=== PATIENT | female | born 1940 | race Caucasian/White ===

== ENCOUNTER 2024-11-28 08:45 | Outpatient (CLI) | payer MEDICARE, SELFPAY ==
--- NOTE | ~2024-11-28 | XR_ITS ---
EXAM: XR knee RT min 4V DATE: 11/28/2024 09:26 HISTORY: M17.0 - Bilateral primary osteoarthritis of knee . COMPARISON: None available. FINDINGS: Decreased mineralization. No fracture or dislocation. No lytic or blastic lesion. Severe m edial joint space narrowing. Tricompartmental osteophytosis, severe in the medial and patellofemoral compartments. Chondrocalcinosis. No erosion or periosteal change. Soft tissues within normal limits. IMPRESSION: Severe right knee arthritis with chondrocalcinosis. Reviewed, dictated and finalized at location K. RATOR ASSEMBLER
--- OUTSIDE RECORDS SUMMARY | 2024-11-28 08:52 | XMS_ITS | Patient Health Record ---
Author Organization [facility], Address [address] [address] Care Team Providers Care Cake Washer Name Role Phone Charlotte Lorenz Primary Care Provider Ethan Zhou Unavailable [phone] ALLERGIES No Known Allergies REASON FOR REFERRAL No Information MEDICATIONS Medication SIG (Take, Route, Fr equency, Duration) Notes Start Date End Date Status amLODIPine Besylate Active Valsartan Active Atorvastatin Calcium Active Metoprolol Succinate Active MV-One Active PreserVision AREDS A ctive Vitamin D Active CoQ-10 Active B12 Active VITAL SIGNS Height 61 in 08/07/2024 Weight 200 lbs 08/07/2024 BMI 37.79 kg/m2 08/07/2024 Encounters Encounter Location Date Provider Diagnosis . 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 She had a flare-up of the trigger finger last week which has calmed down significantly with the use of ibuprofen and ice. I encouraged her to continue to use these nonoperative measures if she does have another flare-up. If she has issues, she should call our office immediately and we will fit her in. Otherwise, if the triggering increases to a point where it is prohibiting her daily activities, we would consider an injection in the future. She will let us know how we can help him forward. PLAN OF TREATMENT No Information Insurance Providers Payer Name Payer Address Payer Phone Subscriber Number Group Number Insured Name Patient Relationship to Insured Coverage Start Date Coverage End Date AETNA MEDICARE PPO [address] ZOE Kramer [phone] [id number] Sandra Cardoza Self - patient is the insured MEDICAL (GENERAL) HISTORY Medical History History ICD Code arthritis heart murmur HTN obesity Surgical History Surgery Date(Month/Year) appendectomy uterine myomectomy gall bladder lumbar tubbs carpal tunnel ventral hernia repair
--- OUTSIDE RECORDS SUMMARY | 2024-11-28 08:52 | XMS_ITS ---
Author Organization [facility] , Address [address] [place] [address] Care Team Providers Care Line Haul Owner Operator Name Role Phone Charlotte Lorenz Primary Care Provider Ethan Zhou Unavailable [phone] ALLERGIES No Known Allergies REASON FOR VISIT Right hand ring finger triggering MEDICATIONS Medication SIG (Take, Route, Fr equency, Duration) Notes Start Date End Date Status Atorvastatin Calcium Active MV-One Active PreserVision AREDS A ctive Vitamin D Active CoQ-10 Active amLODIPine Besylate Active Valsartan Active Metoprolol Succinate Active B12 Active VITAL SIGNS BMI 37.79 kg/m2 08/07/2024 Height 61 in 08/07/2024 Weight 200 lbs 08/07/2024 Encounters Encounter Location Date Provider Diagnosis . [facility] [place] [address] [place] [address] 08/07/2024 Ethan Laureano Trigger ring finger of [...] can help him forward. PLAN OF TREATMENT Next Appt Details Follow Up: prn, Reason:
--- OUTSIDE RECORDS SUMMARY | 2024-11-28 08:52 | XMS_ITS ---
Author Organization [facility], [facility] Address [address] [place] [address] [address] [place] [address] Care Team Providers Care Kiln Maintenance Name Role Phone Gerda NIELSON, Charlotte Primary Care Provider Serafin Li [phone] Encounters Encounter Location Date Provider Diagnosis [facility], [address] [place] [address] 10/30/2023 Serafin Shepherd Plan Of Treatment No Information Progress Notes * ROCKWELL Sandra JDOB:1940 (84 yo F)Acc No.[id number]:10/30/2023 Patient: Sandra GAN :1940 A ge:83 Y S ex:Female Address:[address] [place] [address], [address] Subjective: * Chief Complaints: * * Medical History: * Surgical History: * Hospitalization/Major Diagno stic Procedure: * Medications: Objective: * Vitals: * Physical Examination: Assessment: Plan: * Treatment: * Procedure Codes: * Preventive Medicine: Screenings: C olonoscopy Was last colonoscopy performed three or more years ago? Y es * true * Date: Generated for Saleem hull/Jennifer/Liamsmitting on: 0 11/28/2024 08:52 AM IC DESIGN MANAGER
--- OUTSIDE RECORDS SUMMARY | 2024-11-28 08:52 | XMS_ITS ---
Author Organization [facility] Address [address] [facility] [address], [place] [address] Care Team Providers Care Transformer Repairer Name Role Phone Haile Sawyer MD [phone] Encounters Encounter Location Date Provider Diagnosis [facility] [address] [facility] [address], [place] [address] 09/24/2024 Haile Sawyer MD PLAN OF TREATMENT No Information Procedure Notes * Category Sub-Category Detail Notes Trigger Finger Injection Procedure Under s terile conditions, patient was injected with a local anesthetic and 20 mg Depo Medrol to the ____ flexor tendon sheath. Patient tolerated the procedure well Progress Notes * Examination Category Sub-Category Detail Notes General Examination EXTREMITIES: First dorsal interosseous and thenar abductors ____
--- OUTSIDE RECORDS SUMMARY | 2024-11-28 08:52 | XMS_ITS ---
Author Organization [employer], [facility] Address [address] [place] [address] [address] [place] [address] Care Team Providers Care Business Planning Analyst Name Role Phone Gerda NIELSON, Charlotte Primary Care Provider Serafin Li [facility] [phone] Encounters Encounter Location Date Provider Diagnosis [address] [place] [address] 11/03/2023 Serafin Shepherd Plan Of Treatment No Information Progress Notes * Sandra ROCKWELL JDOB:1940 (83 yo F)Acc No.[id number]:11/03/2023 Patient: Kb taran Sandra Quiles :1940 A ge:83 Y S ex:Female Address:[address] [place] [address], [address] * true * Date: Generated for Wileyi della/Jennifer/eTransmitting on: 0 11/28/2024 08:51 AM PHARMACIST'S AIDE
--- OUTSIDE RECORDS SUMMARY | 2024-11-28 08:52 | XMS_ITS | Patient Health Record ---
Author Organization [facility] Address [address] [place] [address] REJI Burch [address] Care Team Providers Care Specialty Person Name Role Phone GATITO FORREST MD Primary Care Provider Ray faith Evan Soto Unavailable [phone] GLORY BADILLO PT Unavailable Unavailable ALLERGIES No Known Allergies REASON FOR REFERRAL No Information MEDICATIONS Medication SIG (Take, Route, Frequency, Duration) Notes Start Date End Date Status Cyclobenzaprine HCl 10 MG 1 tablet at be dtime as needed Orally Once a day for 30 day(s) 06/16/2024 Active Vitamin B12 100 MCG as directed Orally Active Goode 3 1000 MG 1 capsule Orally Thr ee times a day for 30 day(s) Active Vitamin D-3 25 MCG (1000 UT) 1 capsule O rally Once a day for 30 day(s) Active Glucosamine Chondro Complex Active amLODIPine Besylate 10 MG TAKE 1 TABLET BY MOUTH DAILY Oral for 90 Active Atorvastatin Calcium 10 MG TAKE 1 TABLET BY MOUTH DAILY Oral for 10 Active Metoprolol Succinate ER 25 MG TAKE 1 TAB LET BY MOUTH DAILY Oral for 90 Active Valsartan-hydroCHLOROthiazid e 320-25 MG TAKE 1 TABLET BY MOUTH EVERY DAY Oral for 90 Active PROBLEMS Problem Type ICD Code Onset Dates Problem Status W/U Status Risk SNOMED Code Notes Problem Bilateral primary osteoarthritis of knee (M17.0) Active confirmed Osteoarthritis of knee (422590357) Problem Spondylolisthesis, lumbar region (M43.16) Active confirmed Acquired spondylolisthesis (949085356) Problem Sacroiliitis, not elsewhere classified (M46.1) Active confirmed Solitary sacroiliitis (651896169) Problem Spondylosis without myelopathy or radiculopathy, lumbar region (M47.816) Active confirmed Lumbosacral spondylosis without myelopathy (60145653) Problem Spondylosis without myelopathy or radiculopathy, lumbosacral region (M47.817) Active confirmed Lumbosacral spondylosis without myelopathy (disorder) (48683504) Problem Other intervertebral disc degeneration, lumbar region (M51.36) Active confirmed Degeneration of lumbar intervertebral disc (02553298) Problem Radiculopathy, lumbar region (M54.16) Active confirmed Lumbar radiculopathy (712877631) Problem Postlaminectomy syndrome, not elsewhere classified (M96.1) Active confirmed Post-lami nectomy syndrome (73325644) Problem Osseous stenosis of neural canal of lumbar region (M99.33) Active confirmed Spinal stenosis of lumbar region (03079632) Problem Myalgia, other site (M79.18) Active confirmed Muscle pain (00807239) VITAL SIGNS Heart Rate 86 /min 06/16/2024 Respiratory Rate 18 /min 06/16/2024 Blood pressure diastolic 86 mm Hg 06/16/2024 Height 4 ft 9 in in 06/16/2024 Blood pressure systolic 151 mm Hg 06/16/2024 Weight 200 lbs 06/16/2024 BMI 43.27 kg/m2 06/16/2024 Encounters Encounter Location Date Provider Diagnosis [facility] [address] [place] [address] 06/16/2024 Evan Soto Other intervertebral disc degeneration, lumbar region M51.36 ; Sacroiliitis, not elsewhere classified M46.1 ; Radiculopathy, lumbar region M54.16 ; Postlaminectomy syndrome, not elsewhere classified M96.1 ; Osseous stenosis of neural canal of lumbar region M99.33 ; Spondylolisthesis, lumbar region M43.16 ; Spondylosis without myelopathy or radiculopathy, lumbar region M47.816 ; Spondylosis without myelopathy or radiculopathy, lumbosacral region M47.817 ; Bilateral primary osteoarthritis of knee M17.0 and Myalgia, other site M79.18 ASSESSMENTS Encounter Date Diagnosis Assessment Notes Treatment Notes Treatment Clinical Notes 06/16/2024 Sacroiliitis, not elsewhere classified (ICD-10 - M46.1) If the patient's lumbosacral and perisacral pain returns and fails to improve with continued conservative care, schedule a bilateral sacroiliac joint injection. The risks of this procedure including pain, bleeding, infection, insomnia, hyperglycemia, hair loss, muscle atrophy, skin depigmentation, weight gain, fluid retention, adrenal suppression, immunosuppression, osteoporosis resulting in fractures, avascular necrosis of the hip, cataracts, bleeding gastric ulcer, worsening pain and failure to relieve pain were discussed and the patient expressed an understanding of the above. The patient is very reluctant to undergo injection therapy. The patient was given a requisition for physical therapy and will return to [facility] in [place]. 06/16/2024 Other intervertebral disc degeneration, lumbar region (ICD-10 - M51.36) Plan to check an x-ray lumbar spine. The patient reports a history of a spondylolisthesis and hasn't had any lumbar spine imaging for greater than 20 years. 06/16/2024 Radiculopathy, lumbar region (ICD-10 - M54.16) 06/16/2024 Postlaminectomy syndrome, not elsewhere classified (ICD-10 - M96.1) 06/16/2024 Osseous stenosis of neural canal of lumbar region (ICD-10 - M99.33) 06/16/2024 Spondylolisthesis, lumbar region (ICD-10 - M43.16) 06/16/2024 Spondylosis without myelopathy or radiculopathy, lumbar region (ICD-10 - M47.816) 06/16/2024 Spondylosis without myelopathy or radiculopathy, lumbosacral region (ICD-10 - M47.817) 06/16/2024 Bilateral primary osteoarthritis of knee (ICD-10 - M17.0) 06/16/2024 Myalgia, other site (ICD-10 - M79.18) The side effects of muscle relaxants including sedation and other anticholinergic side effects such as dry mouth were discussed and the patient expressed an understanding of the above. The patient was advised to avoid driving, climbing ladders and operating dangerous machinery after taking this medication. The patient was advised to avoid consuming alcohol, illicit drugs and sedative/hypnotic drugs in conjunction with this medication due to the risk of profound sedation and potential physical injury. 06/16/2024 Other Thank you Saldaña Badillo, PT for your kind referral and for involving me in the care of this patient. PLAN OF TREATMENT Pending Test Test Name Order Date X ray : Spines, lumbar complete 06/16/20 24 Insurance Providers Payer Name Payer Address Payer Phone Subscriber Number Group Number Insured Name Patient Relationship to Insured Coverage Start Date Coverage End Date AETNA MEDICARE [address] CORRIE NIEVESZOE Rucker [phone] [id number] JONATHAN ROCKWELL Self - patient is the insured MEDICAL (GENERAL) HISTORY Medical History History ICD Code Aneurysm Osteopenia Hypertension GERD Surgical History Surgery Date(Month/Year) Lumbar discectomy age 31 Carpal tunnel release 2018 Cholecystectomy Hernia repair
--- OUTSIDE RECORDS SUMMARY | 2024-11-28 08:52 | XMS_ITS | Patient Health Record ---
Author Organization [facility] Address [address] [place] [address] [address]. [address] [place] [address] Care Team Providers Care Mutuel Department Manager Name Role Phone Gerda NIELSON, Charlotte Primary Care Provider Serafin Li Unavailable [phone] Reason For Referral No Information Medications Medication SIG (Take, Route, Frequency, Duration) Notes Start Date End Date Status Valsartan Active Atorvastatin Calcium Active PEG-3350/Electrolytes 236 GM ML Orally Twice a day for 1 days 10/10/2023 Active amLODIPine Besylate Active OTC/Vitamins ASA, Glucosamine, MVI Centrum Silver, Probiotic, Fish oil, CoQ10, Magnesium, Vitamin D Active Immunizations Vaccine Route Administration Date Status Comme nts Influenza, seasonal, injecta ble, preservative free, 3 yrs and above Unknown 06/21/2017 Administered Pneumonia Vaccination Unknown 09/26/2014 Administered Social History Tobacco Use: Social History Observation Description Date Details (start date - stop date) Never Smoker NA - NA Tobacco Use/Smoking Question Answer Notes Are you a nonsmoker Problems Problem Type SNOMED Code ICD Code Onset Dates Problem Status W/U Status Risk Notes Problem 703408409 Personal history of colonic polyps (Z86.010) Active confirmed Problem 183014516 Colon cancer screening (Z12.11) Active confirmed Problem 228023938 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 Problem 001132706 Adenoma of rectum (D12.8) Active confirmed Problem 759719393 Abdominal bloating (R14.0) Active confirmed Plan Of Treatment Pending Test Test Name Order Date Initiate SIBO 12/31/2017 Insurance Providers Payer Name Payer Address Payer Phone Subscriber Number Group Number Insured Name Patient Relationship to Insured Coverage Start Date Coverage End Date Aetna Medicare Ppo E2 [address] ZOE Kramer [phone] [id number] Sandra Cardoza Self - patient is the insured Medical (General) History Medical History History ICD Code GERD Hypertension Asthma Surgical History Surgery Date(Month/Year) EGD 12/2017 Colonoscopy (Dr. 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
--- OUTSIDE RECORDS SUMMARY | 2024-11-28 08:53 | XMS_ITS ---
Author Organization [employer] Address [address] [facility]. [address] [place] [address] Care Team Providers Care Extrusion Former Name Role Phone Gerda NIELSON, Charlotte Primary Care Provider Serafin Li Unavailable [phone] REASON FOR VISIT Screen/diverticulitis/Phxcp/5ft 195-UNSEDATED Medications Medication SIG (Take, Route, Frequency, Duration) Notes Start Date End Date Status Valsartan Active Atorvastatin Calcium Active PEG-3350/Electrolytes 236 GM ML Orally Twice a day for 1 days 10/10/2023 Active amLODIPine Besylate Active OTC/Vitamins ASA, Glucosamine, MVI Centrum Silver, Probiotic, Fish oil, CoQ10, Magnesium, Vitamin D Active Problems Problem Type SNOMED Code ICD Code Onset Dates Problem Status W/U Status Risk Notes Problem 899132608 Personal history of colonic polyps (Z86.010) Active confirmed Problem 055906458 Adenoma of rectum (D12.8) Active confirmed Problem 796564533 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 Encounters Encounter Location Date Provider Diagnosis [address] [address] 10/30/2023 Serafin Shepherd Colon cancer screening Z12.11 ; Personal history of colonic polyps Z86.010 ; Adenoma of rectum D12.8 and Adenoma of transverse colon D12.3 Assessments Encounter Date Diagnosis (ICD Code) Assessment Notes Treatment Notes Treatment Clinical Notes Section Notes 10/30/2023 Colon cancer screening (ICD-10 - Z12.11) 10/30/2023 Personal history of colonic polyps (ICD-10 - Z86.010) 10/30/2023 Adenoma of rectum (ICD-10 - D12.8) 10/30/2023 Adenoma of transverse colon (ICD-10 - D12.3) Plan Of Treatment Next Appt Details Follow Up: no routine f/u co lonoscopy, Reason: Progress Notes * Sandra ROCKWELL JDOB:1940 (83 yo F)Acc No.[id number]:10/30/2023 Patient: Sandra Vickers Provider: Kb Shepherd M.D. :1940 A ge:83 Y S ex:Female Date:10/30/2023 Address:[address] [place] [address] Pcp:Charlotte Lorenz MD Subjective: * Chief Complaints: * S creen/diverticulitis/Phxcp/5ft 195-UNSEDATED * Medical History: * Surgical History: * Hospitalization/Major Diagno stic Procedure: * Medications: T akingValsartan Atorvastatin Calcium amLODIPine Besylate OTC/Vitamins , Notes: ASA, Glucosamine, MVI Centrum Silver, Probiotic, Fish oil, CoQ10, Magnesium, Vitamin DPEG-3350/Electrolytes 236 GM Solution Reconstituted ML Orally Twice a dayTaking Valsartan Taking Atorvastatin Calcium Taking amLODIPine Besylate Taking OTC/Vitamins , Notes: ASA, Glucosamine, MVI Centrum Silver, Probiotic, Fish oil, CoQ10, Magnesium, Vitamin DTaking PEG-3350/Electrolytes 236 GM Solution Reconstituted ML Orally Twice a day Objective: Assessment: * Assessment: 1. C olon cancer screening - Z12.11 (Primary) 2 . P ersonal history of colonic polyps - Z86.010 3 . A denoma of rectum - D12.8 4 . A denoma of transverse colon - D12.3? Plan: * Treatment: * Procedure Codes: 4 5380 COLONOSCOPY AND BIOPSY, Modifiers: PT * Follow Up: n o routine f/u colonoscopy * Images: * IFIED SCRUM MASTER Sign off status: Completed true * Provider: Kb Shepherd M.D. Date: 0 10/30/2023 Generated for Saleem hull/Jennifer/Rodneyitting on: 0 11/28/2024 08:52 AM CERTIFIED SCRUM MASTER
--- OUTSIDE RECORDS SUMMARY | 2024-11-28 08:53 | XMS_ITS | Clinical Summary ---
Author Organization [facility] Address [facility] [place] [address] Care Team Providers Care Child Care Associate Name Role Phone Charlotte Lorenz MD Primary Care Provider Medications amLODIPine (NORVASC) 10 MG tablet Take 1 tablet (10 mg total) by mouth daily. Active atorvastatin (LIPITOR) 10 MG tablet Take 1 tablet (10 mg total) by mouth daily. Active CALCIUM OR Take by mouth daily. 4 Active Cholecalciferol (VITAMIN D-3) 25 MCG (1000 UT) Cap 1 capsule daily. Act silva Cyanocobalamin 100 MCG Tab as directed Orally Active cyclobenzaprine (FLEXERIL) 10 MG tablet daily. 4 Active metoprolol succinate ER (TOPROL-XL) 25 MG 24 hr tablet TAKE 1 TABLET BY MOUTH DAILY Oral for 90 Active [place] 3 1000 MG Cap 1 capsule every 8 (eight) hours. Active traMADol (ULTRAM) 50 MG tablet See Instructions, 30 tablet(s), 0, 0, TAKE 1-2 TABLETS BY MOUTH EVERY 6 HOURS FOR 3 DAYS NEEDED; DO NOT EXCEED 8 TABLETS IN 24 HOURS, Route to Pharmacy Electronically, [id number], [id number], Instructions Replace Required Details, 152, cm, 07/25/23 13:28:00 CDT, Height, 90, kg, 07/25/23 13:28:00 CDT, Weight 4 Active valsartan-hydro CHLOROthiazide (DIOVAN-HCT) 320-25 MG tablet Take 1 tablet by mouth daily. Active Encounters Date Type Department Care Team Description 09/30/2024 9:20 AM MANAGER TECHNOLOGY Office Visit [facility] [place] [address] [facility], [place] [address] Lio Quevedo, DPM [place]/ Callous Removal (Pt is here for a corn/callous on the bottom of her Lt foot. Pt states that she would also like her toenails looked at. Pt states that she is not diabetic. Pt used to see Adriana Diego in [place]. ) 09/30/2024 Travel from Last 3 Months Social History Tobacco Use Types Packs/Day Years Used Date Smoking Tobacco: Never Comments Unknown Sex and Gender Information Value Date Recorded Sex Assigned at Not on file Legal Sex Female 8:38 PM CDT Gender Identity Not on file Sexual Orientation Not on file Last Filed Vital Signs Vital Sign Reading Time Taken Comments Blood Pressure 122/60 09/30/2024 9:11 AM MANAGER TECHNOLOGY Pulse 77 09/30/2024 9:11 AM MANAGER TECHNOLOGY Temperature - - Respiratory Rate 16 09/21/2004 9:38 AM MANAGER TECHNOLOGY R egular Oxygen Saturation 98% 09/30/2024 9:11 AM MANAGER TECHNOLOGY Inhaled Oxygen Concentration - - Weight 88.9 kg (196 lb) 09/21/2004 9:38 AM MANAGER TECHNOLOGY Height 154.9 cm (5' 1 ) 09/30/2024 9:11 AM MANAGER TECHNOLOGY Body Mass Index 37.03 09/21/2004 9:38 AM MANAGER TECHNOLOGY Plan of Treatment Health Maintenance Due Date Last Done Comments PHQ-2 (Physician [place]) 1952 Annual Medicare Wellness Visit 2004 PHQ-2 (Physician [place]) 10/21/2024 DTaP, Tdap and Td Vaccines (4 - Td or Tdap) 03/30/2029 03/30/2019, 03/30/2019, 12/19/2008, Additional history exists Zoster Vaccines Completed 05/30/2018, 06/2018, 03/12/2018, Additional history exists Pneumococcal Vaccine: 65+ Years Completed 11/17/2021, 10/06/2014, 08/21/2014, Additional history exists RSV Immunization or 60+ Years Completed 07/29/2023 COVID-19 Vaccine Completed 07/02/2024, , 06/29/2022, Additional history exists Influenza Adult Completed 07/02/2024, 04/2023, 06/29/2022, Additional history exists Meningococcal B Vaccine Aged Out No l onger eligible based on patient's age to complete this topic Meningococcal Vaccine Aged Out No edward izzy eligible based on patient's age to complete this topic RSV Immunizations Under 20 Months Aged Out No longer eligible based on patient's age to complete this topic Insurance AETNA Care Teams Child Care Associate Relationship Specialty Start Date End Date Charlotte oLrenz MD [address] [place] [address] PCP - General INTERNAL MEDICINE 09/30/24
--- OUTSIDE RECORDS SUMMARY | 2024-11-28 08:53 | XMS_ITS ---
Author Organization [facility] Address [address] [place] [address] REJI Burch [address] Care Team Providers Care Twisting Frame Fixer Name Role Phone GATITO FORREST MD Primary Care Provider Evan Cuba Unavailable [phone] GLORY BADILLO PT Unavailable Unavailable ALLERGIES No Known Allergies REASON FOR VISIT New Patient Visit, Left > Right Low Back Pain MEDICATIONS Medication SIG (Take, Route, Frequency, Duration) Notes Start Date End Date Status Cyclobenzaprine HCl 10 MG 1 tablet at be dtime as needed Orally Once a day for 30 day(s) 06/16/2024 Active amLODIPine Besylate 10 MG TAKE 1 TABLET BY MOUTH DAILY Oral for 90 Active Atorvastatin Calcium 10 MG TAKE 1 TABLET BY MOUTH DAILY Oral for 10 Active Metoprolol Succinate ER 25 MG TAKE 1 TAB LET BY MOUTH DAILY Oral for 90 Active Valsartan-hydroCHLOROthiazid e 320-25 MG TAKE 1 TABLET BY MOUTH EVERY DAY Oral for 90 Active Vitamin B12 100 MCG as directed Orally Active Lester 3 1000 MG 1 capsule Orally Thr ee times a day for 30 day(s) Active Vitamin D-3 25 MCG (1000 UT) 1 capsule O rally Once a day for 30 day(s) Active Glucosamine Chondro Complex Active PROBLEMS Problem Type ICD Code Onset Dates Problem Status W/U Status Risk SNOMED Code Notes Problem Radiculopathy, lumbar region (M54.16) Active confirmed Lumbar radiculopathy (227170221) Problem Other intervertebral disc degeneration, lumbar region (M51.36) Active confirmed Degeneration of lumbar intervertebral disc (02939411) Problem Postlaminectomy syndrome, not elsewhere classified (M96.1) Active confirmed Post-lami nectomy syndrome (59641866) Problem Osseous stenosis of neural canal of lumbar region (M99.33) Active confirmed Spinal stenosis of lumbar region (89963651) Problem Spondylosis without myelopathy or radiculopathy, lumbar region (M47.816) Active confirmed Lumbosacral spondylosis without myelopathy (78570083) Problem Spondylosis without myelopathy or radiculopathy, lumbosacral region (M47.817) Active confirmed Lumbosacral spondylosis without myelopathy (disorder) (20848228) Problem Sacroiliitis, not elsewhere classified (M46.1) Active confirmed Solitary sacroiliitis (808336745) Problem Spondylolisthesis, lumbar region (M43.16) Active confirmed Acquired spondylolisthesis (788316992) Problem Bilateral primary osteoarthritis of knee (M17.0) Active confirmed Osteoarthritis of knee (836511090) Problem Myalgia, other site (M79.18) Active confirmed Muscle pain (94472211) VITAL SIGNS Blood pressure systolic 151 mm Hg 06/16/20 24 Blood pressure diastolic 86 mm Hg 024 Heart Rate 86 /min 06/16/2024 Respiratory Rate 18 /min 06/16/2024 Height 4 ft 9 in in 06/16/2024 Weight 200 lbs 06/16/2024 BMI 43.27 kg/m2 06/16/2024 Encounters Encounter Location Date Provider Diagnosis [facility] [address] [place] [address] 06/16/2024 Evan Soto Other intervertebral disc degeneration, [...] Notes Treatment Notes Treatment Clinical Notes 06/16/2024 Other intervertebral disc degeneration, lumbar region (ICD-10 - M51.36) Plan to check an x-ray lumbar spine. The patient reports a history of a spondylolisthesis and hasn't had any lumbar spine imaging for greater than 20 years. 06/16/2024 Sacroiliitis, not elsewhere classified (ICD-10 - [...] for physical therapy and will return to [facility] in [place]. 06/16/2024 Radiculopathy, lumbar region (ICD-10 - M54.16) [...] potential physical injury. 06/16/2024 Other Thank you Glory Badillo PT for your kind referral and for involving me in the care of this patient. PLAN OF TREATMENT Medication Medication Name Sig Start Date Stop Date Notes Cyclobenzaprine HCl 10 MG 1 tablet at be dtime as needed Orally Once a day for 30 day(s) 06/16/2024 Treatment Notes Assessment Notes Other intervertebral disc de generation, lumbar region Plan to check an x-ray lumbar spine. The patient reports a history of a spondylolisthesis and hasn't had any lumbar spine imaging for greater than 20 years. Sacroiliitis, not elsewhere classified If the patient's lumbosacral and perisacral pain [...] for physical therapy and will return to [facility] in [place]. Myalgia, other site The side effects of muscle relaxants including [...] of profound sedation and potential physical injury. Other Thank you Glory pink PT for your kind referral and for involving me in the care of this patient. Pending Test Test Name Order Date X ray : Spines, lumbar complete 06/16/20 24 Next Appt Details Follow Up: prn, Reason: Progress Notes * Examination Category Sub-Category Detail Notes Examination/ Pre-Anesthesia Assessment General: The patient is alert and brigid ented X 3 in moderate distress secondary to pain HEENT: Normocephalic, atrau matic. PERRL. The oropharynx is clear Neck: There is full range of motion of the cervical spine Heart: Regular rate and rhy thm Chest: Clear to auscultatio n bilaterally Abdomen: Soft and benign with normal bowel sounds throughout Musculoskeletal and Extremities: Ryder 's, Conestoga's and Gaenslen's are positive bilaterally. There is tenderness to palpation over the bilateral sacroiliac joints and greater trochanters. There is tenderness to palpation over the bilateral lumbar paraspinal muscles Neurological: There is negative st raight leg raising bilaterally. There are no focal strength deficits in the bilateral upper and lower extremities Skin: Clean, dry and intac t Psychiatric: Mood and affect are normal History and Physical Notes * HPI (History of Present Illness) Category Sub-Category Detail Notes Pain Management Radiographic Imaging An MRI of t he left knee done on 09/28/15 demonstrates a small subchondral insufficiency fracture in the medial tibial plateau with associated bone marrow edema. There is a tear of the medial meniscus. There is moderate DJD and joint space narrowing Assessment and Follow-up: Follow-up Plan documen albert:: Yes MIPS Quality 2020: MIPS Documented:: Compliant
--- OUTSIDE RECORDS SUMMARY | 2024-11-28 08:53 | XMS_ITS | Patient Health Record ---
Author Organization [facility] Address [address] [place] [address] Care Team Providers Care Communication Equipment Repairer Name Role Phone Haile Sawyer MD [phone] REASON FOR REFERRAL No Information MEDICATIONS Medication SIG (Take, Route, Frequency, Duration) Notes Start Date End Date Status Vitamin D Active Aspirin 81 Active Lipitor Active Valsartan-hydroCHLOROthiaz surjit Active Norvasc Active IMMUNIZATIONS Vaccine Route Administration Date Status Comme nts Influenza Unknown 06/24/2017 Administered pneumoccocal Unknown 10/06/2014 Administered SOCIAL HISTORY Tobacco Use: Social History Observation Description Date Details (start date - stop date) Never Smoker NA - NA Sex Assigned At : Social History Observation Description Sex Assigned At Unknown Tobacco Use: Question Answer Notes Patient is a: nonsmoker Alcohol screening: Question Answer Notes Did you have a drink contain ing alcohol in the past year? Yes How often did you have a dri nk containing alcohol in the past year? Monthly or less (1 point) How many drinks did you have on a typical day when you were drinking in the past year? 1 or 2 (0 points) How often did you have six o r more drinks on one occasion in the past year? Less than monthly (1 point) Points 2 Interpretation Negative PROBLEMS Problem Type ICD Code Onset Dates Problem Status W/U Status Risk SNOMED Code Notes Problem Carpal tunnel syndrome, left upper limb (G56.02) Active confirmed 432755054573743 Problem Trigger finger, right ring finger (M65.341) Active confirmed 817463732 Problem Trigger finger, right middle finger (M65.331) Active confirmed 240190883 Problem Encounter for removal of sutures (Z48.02) Active confirmed 179447048 Encounters Encounter Location Date Provider Diagnosis [facility] [address] [place] [address] 09/24/2024 Haile Sawyer MD PLAN OF TREATMENT No Information Insurance Providers Payer Name Payer Address Payer Phone Subscriber Number Group Number Insured Name Patient Relationship to Insured Coverage Start Date Coverage End Date [facility] [employer] [address] [address] [place], [place] [id number] Sandra Cardoza Self - patient is the insured MEDICAL (GENERAL) HISTORY Medical History History ICD Code hypertension high cholesterol asthma Surgical History Surgery Date(Month/Year) left carpal tunnel release 05-26-18 (TGL) hernia repair myomectomy cholecystectomy appendectomy lumbar laminectomy
== END 2024-11-28 08:46 | disposition home or self-care (01) ==
PROVIDERS: Visit Provider Orthopaedic Surgery
DX: M17.0 Bilateral primary osteoarthritis of knee (principal)
CPT/HCPCS: 73564

== ENCOUNTER 2024-12-18 11:55 | Outpatient (CLI) | payer MEDICARE, SELFPAY ==
[2024-12-18 12:45] LABS: Hematocrit 39.3 % (37.0-47.0); Hemoglobin 12.7 g/dL (12.0-15.0)
[2024-12-18 13:06] LABS: Albumin Level 4.4 g/dL (3.5-5.1); Estimated Glomerular Filt Rate > 60; Glucose 98 mg/dL (65-110)
[2024-12-18 13:50] LABS: Hemoglobin A1C 5.4 % (<5.7)
== END 2024-12-18 11:56 | disposition home or self-care (01) ==
LOC: ANHLAB 12:00
PROVIDERS: Visit Provider Orthopaedic Surgery
DX: E55.9 Vitamin D deficiency, unspecified (principal); R73.01 Impaired fasting glucose; M17.11 Unilateral primary osteoarthritis, right knee
CPT/HCPCS: 36415; 82040; 82565; 82947; 83036; 85014; 85018

== ENCOUNTER 2025-02-03 12:10 | Outpatient (CLI) | payer MEDICARE, SELFPAY ==
--- OUTSIDE RECORDS SUMMARY | 2025-02-03 13:22 | XMS_ITS ---
Author Organization [facility], [facility] Address [address] [place] [address] [address] [place] [address] Care Team Providers Care Sports Medicine Coordinator Name Role Phone Gerda NIELSON, [place] Primary Care Provider Serafin Li [facility] [phone] Encounters Encounter Location Date Provider Diagnosis [address] [place] [address] 11/03/2023 Serafin Shepherd Plan Of Treatment No Information Progress Notes * Sandra ROCKWELL JDOB:1940 (83 yo F)Acc No.[id number]:11/03/2023 Patient: Kb taran Sandra Quiles :1940 A ge:83 Y S ex:Female Address:[address] [place] [address], [address] * true * Date: Generated for Wileyi della/Famarlineg/eTransmitting on: 0 02/03/2025 01:22 PM CDT
--- OUTSIDE RECORDS SUMMARY | 2025-02-03 13:23 | XMS_ITS | Patient Health Record ---
Author Organization [facility] Address 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 Problem 221438714 Adenoma of rectum (D12.8) Active confirmed Problem 383582708 Abdominal bloating (R14.0) Active confirmed Plan Of Treatment Pending Test Test Name Order Date Initiate SIBO 12/31/2017 Insurance Providers Payer Name Payer Address Payer Phone Subscriber Number Group Number Insured Name Patient Relationship to Insured Coverage Start Date Coverage End Date [employer] Medicare Ppo E2 [address] ZOE Kramer [phone] [id number] Sandra Cardoza Self - patient is the insured Medical (General) History Medical History History ICD Code GERD Hypertension Asthma Surgical History Surgery Date(Month/Year) EGD 12/2017 Colonoscopy (Dr. 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
--- OUTSIDE RECORDS SUMMARY | 2025-02-03 13:23 | XMS_ITS | Patient Health Record ---
Author Organization [facility], Address [address] [address] Care Team Providers Care Md Physician Dermatologist Name Role Phone Charlotte Lorenz Primary Care Provider Ethan Zhou Unavailable [phone] ALLERGIES No Known Allergies REASON FOR REFERRAL [...] Encounters Encounter Location Date Provider Diagnosis . [facility] [place] [address] [facility] [address] [address] 08/07/2024 Ethan Laureano Trigger ring finger of [...] End Date [employer] MEDICARE PPO [address] ZOE Kramer [phone] [id number] Sandra Cardoza Self - patient is the insured MEDICAL (GENERAL) HISTORY Medical History History ICD Code arthritis heart murmur HTN obesity Surgical History Surgery Date(Month/Year) appendectomy uterine myomectomy gall bladder lumbar tubbs carpal tunnel ventral hernia repair
--- OUTSIDE RECORDS SUMMARY | 2025-02-03 13:23 | XMS_ITS ---
Author Organization [employer], [facility] Address [address] [place] [address] [address] [place] [address] Care Team Providers Care Bark Peeler Name Role Phone Gerda NIELSON, [place] Primary Care Provider Serafin Li [phone] Encounters Encounter Location Date Provider Diagnosis [facility] [address] [place] [address] 10/30/2023 Serafin Shepherd Plan Of Treatment No Information Progress Notes * ROCKWELL Sandra JDOB:1940 (84 yo F)Acc No.[id number]:10/30/2023 Patient: Sandra GAN :1940 A ge:83 Y S ex:Female Address:[address] [place] [address], [facility] Subjective: * Chief Complaints: * * Medical History: * Surgical History: * Hospitalization/Major Diagno stic Procedure: * Medications: Objective: * Vitals: * Physical Examination: Assessment: Plan: * Treatment: * Procedure Codes: * Preventive Medicine: Screenings: C olonoscopy Was last colonoscopy performed three or more years ago? Y es * true * Date: Generated for Wileyi della/Jennifer/Liamsmitting on: 0 02/03/2025 01:22 PM CDT
--- OUTSIDE RECORDS SUMMARY | 2025-02-03 13:23 | XMS_ITS ---
Author Organization [facility] Address [address] [place] [address] Care Team Providers Care Plumbing Technician Name Role Phone Charlotte Lorenz Primary Care Provider Ethan Zhou Unavailable [phone] ALLERGIES No Known Allergies REASON FOR VISIT [...] Encounter Location Date Provider Diagnosis . [facility] [place] [address] [place] [address] 08/07/2024 Ethan Laureano Trigger ring finger of [...]
--- OUTSIDE RECORDS SUMMARY | 2025-02-03 13:23 | XMS_ITS ---
Author Organization [facility] Address [address] [facility]. 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 :1940 A ge:83 Y S ex:Female Date:10/30/2023 Address:[address] [place] [address] Pcp:Charlotte Lorenz MD Subjective: * Chief Complaints: [...] o routine f/u colonoscopy * Images: * DENT PHYSICIAN IN RADIOLOGY Sign off status: Completed true * Provider: Kb Shepherd M.D. Date: 0 10/30/2023 Generated for Saleem hull/Jennifer/Rodneyitting on: 0 02/03/2025 01:23 PM CDT
--- OUTSIDE RECORDS SUMMARY | 2025-02-03 13:23 | XMS_ITS | Clinical Summary ---
Author Organization [facility] Address [place] [address] Care Team Providers Care Range Ecologist Name Role Phone Charlotte Lorenz MD Primary Care Provider [phone] Medications amLODIPine (NORVASC) 10 MG tablet Take [...] BY MOUTH DAILY Oral for 90 Active [place] 3 1000 MG Cap 1 capsule every 8 (eight) hours. Active traMADol (ULTRAM) 50 MG tablet See Instructions, 30 tablet(s), 0, 0, TAKE 1-2 TABLETS BY MOUTH EVERY 6 HOURS FOR 3 DAYS NEEDED; DO NOT EXCEED 8 TABLETS IN 24 HOURS, Route to Pharmacy Electronically, [id number], [id number], Instructions Replace Required Details, 152, cm, 07/25/23 13:28:00 CDT, Height, 90, kg, 07/25/23 13:28:00 CDT, Weight 4 Active valsartan-hydro CHLOROthiazide (DIOVAN-HCT) 320-25 MG tablet Take 1 tablet by mouth daily. Active Social History Tobacco Use Types Packs/Day Years Used Date Smoking Tobacco: Never Comments Unknown Sex and Gender Information Value Date Recorded Sex Assigned at Not on file Legal Sex Female 8:38 PM CDT Gender Identity Not on file Sexual Orientation Not on file Last Filed Vital Signs Vital Sign Reading Time Taken Comments Blood Pressure 122/60 09/30/2024 9:11 AM DIGITAL CARTOGRAPHER Pulse 77 09/30/2024 9:11 AM DIGITAL CARTOGRAPHER Temperature - - Respiratory Rate 16 09/21/2004 9:38 AM DIGITAL CARTOGRAPHER R egular Oxygen Saturation 98% 09/30/2024 9:11 AM DIGITAL CARTOGRAPHER Inhaled Oxygen Concentration - - Weight 88.9 kg (196 lb) 09/21/2004 9:38 AM DIGITAL CARTOGRAPHER Height 154.9 cm (5' 1 ) 09/30/2024 9:11 AM DIGITAL CARTOGRAPHER Body Mass Index 37.03 09/21/2004 9:38 AM DIGITAL CARTOGRAPHER Plan of Treatment Health Maintenance Due Date Last Done Comments Annual Medicare Wellness Visit 2004 PHQ-2 (Physician Blanket) 10/21/2024 COVID-19 Vaccine ( season) 2024 07/02/2024, 07/08/2023, 06/29/2022, Additional history exists DTaP, Tdap and Td Vaccines (4 - Td or Tdap) 03/30/2029 03/30/2019, 03/30/2019, 12/19/2008, Additional history exists Zoster Vaccines Completed 05/30/2018, 06/2018, 03/12/2018, Additional history exists Pneumococcal Vaccine: 50+ Years Completed 11/17/2021, 10/06/2014, 08/21/2014, Additional history exists RSV Immunization or 60+ Years Completed 07/29/2023 Meningococcal B Vaccine Aged Out No l onger eligible based on patient's age to complete this topic Meningococcal Vaccine Aged Out No edward izzy eligible based on patient's age to complete this topic RSV Immunizations Under 20 Months Aged Out No longer eligible based on patient's age to complete this topic Insurance A[employer]NA Care Teams Range Ecologist Relationship Specialty Start Date End Date Charlotte Lorenz MD [address] [place] [address] PCP - General INTERNAL MEDICINE 09/30/24
--- NOTE | 2025-02-03 13:46 | ECG_ITS ---
Test Date: 2025-02-03 14:01:12 Measurements Intervals [place] Rate: 87 P: 139 MO: 194 QRS: -10 QRSD: 77 T: 56 QT: 348 QTc: 419 Interpretive Statements SINUS RHYTHM LOW QRS VOLTAGE IN PRECORDIAL LEADS LEFT VENTRICULAR HYPERTROPHY WITH ST-T CHANGE POSSIBLE ANTERIOR MYOCARDIAL INFARCTION BASELINE ARTIFACT- I, II, III, AVR, AVLA ,VF ABNORMAL ECG No previous ECG available for comparison Electronically Signed On 02-03-2025 14:08:07 CDT by Dave Bello D.O.
[2025-02-03 14:21] LABS: Basophils Absolute Auto 0.1 K/mm3 (0.0-0.1); Basophils Percent Auto 0.9 % (0.2-1.2); Eosinophils Absolute Auto 0.1 K/mm3 (0-0.3); Eosinophils Percent Auto 1.9 % (0-4.4); Hematocrit 41.1 % (37.0-47.0); Hemoglobin 12.8 g/dL (12.0-15.0); Immature Granulocyte Absolute 0.01 K/mm3 (0.00-0.031); Immature Granulocyte Percent A 0.1 % (0-0.5); Lymphocytes Absolute Auto 1.29 K/mm3 (0.9-3.2); Lymphocytes Percent Auto 19.2 % (18.3-44.2); Mean Corpuscular HGB Conc 31.1 g/dl (32-36); Mean Corpuscular Hemoglobin 31.7 pg (26-34); Mean Corpuscular Volume 101.7 fl (80-100); Mean Platelet Volume 11.4 fl (7.4-10.4); Monocytes Absolute Auto 0.7 K/mm3 (0.1-0.6); Monocytes Percent Auto 10.7 % (2.6-8.5); Neutrophils Absolute Auto 4.5 K/mm3 (1.3-6.7); Neutrophils Percent Auto 67.2 % (45.5-73.1); Platelet Count Result 245 k/mm3 (150-375); Red Blood Count 4.04 M/mm3 (4.2-5.4); Red Cell Distribution Width 12.1 % (11.5-14.5); White Blood Count 6.7 K/mm3 (4.5-10.0)
[2025-02-03 14:40] LABS: Albumin Level 4.7 g/dL (3.5-5.1)
[2025-02-03 14:42] LABS: Anion Gap 13 mmol/L (4-12); Blood Urea Nitrogen 21 mg/dL (7-17); Calcium 9.8 mg/dL (8.4-10.2); Carbon Dioxide 26 mmol/L (22-30); Chloride 99 mmol/L (98-107); Estimated Glomerular Filt Rate > 60; Glucose 100 mg/dL (65-110); Potassium 3.9 mmol/L (3.4-5.0); Sodium 138 mmol/L (137-145)
[2025-02-03 14:49] LABS: Urine Cotinine NEGATIVE
[2025-02-03 15:29] LABS: MRSA (PCR) NOT DETECTED (NOT DETECTE)
== END 2025-02-03 12:11 | disposition home or self-care (01) ==
LOC: ANHSURGERY 12:18
PROVIDERS: Anesthesiology; Visit Provider Orthopaedic Surgery
DX: M17.11 Unilateral primary osteoarthritis, right knee (principal); I10 Essential (primary) hypertension; Z01.818 Encounter for other preprocedural examination; R94.31 Abnormal electrocardiogram [ECG] [EKG]
CPT/HCPCS: 36415; 80048; 80307; 82040; 85025; 87641; 93005

== ENCOUNTER 2025-03-01 00:30 | Day surgery (SDC) | payer MEDICARE, SELFPAY ==
--- NOTE | 2025-02-03 11:47 | PC.NURSE ---
Report to the Outpatient Waiting Room, entrance under the green pavilion located off [facility], at time __10 am on date 03/01/25 . Planned Procedure Time: _1200 noon .? Time changes happen often and if your time is changed the preop area will call you the afternoon before. - You and your visitor will be asked to self-screen and do not enter if you have any COVID symptoms. Please call surgeon if you need to reschedule. - A mask is optional within the hospital at this time. Patients may have clear liquids (water, carbonated beverages, clear teas, apple juice) until 3 hours prior to surgery ( 9am) with a maximum of 20 ounces. - No food from midnight until time of surgery and no smoking, or chewing tobacco (or any form of nicotine). No chewing gum, candy or mints. - Take only the following medications with a SIP of water on the morning of surgery: __AMLODIPINE DO NOT STOP ANY OF YOUR OTHER PRESCRIPTION MEDICATIONS PRIOR TO SURGERY EXCEPT THE FOLLOWING Hold all vitamins and supplements for 3 days per anesthesiologist. LAST DOSE 02/25/25 Medications to discontinue per physician NONE MAY TAKE TYLENOL IF NEEDED FOR PAIN Please no make-up, nail romanian, hairspray, perfume, deodorant, or body powder the day of surgery.? No jewelry (including any body piercings) or valuables the day of surgery, leave them at home.? Please take a shower or bath the night before, or the morning of, surgery with an antibacterial soap.? Wear comfortable, loose fitting clothing.? Children are encouraged to wear pajamas. - Jewelry must be removed prior to entering the operating room.? Rings and piercings that are not removed may be cut off. - The hospital will not accept responsibility for valuables.? - Please leave all valuables, including medications, at home the day of surgery. If you are going home after surgery, a licensed motor bus driver must drive you home.? - NO public transportation without another adult if you receive anesthesia. - We recommend that an adult stay with you for 24 hours following discharge. - We also recommend that you do not drive, make important decision, drink alcoholic beverages, or take any drugs that were not prescribed by your health care provider for at least 24 hours after your discharge time. Follow any additional instructions given to you from your surgeon. VERBAL AND WRITTEN instructions given to _PATIENT and asked if any additional questions and then verbalized understanding. Patient advised to call surgeon office or pre surgery nurse liaison [phone] if any additional questions.
[2025-02-03 12:23] VITALS: BMI 38.7
[2025-02-03 13:35] VITALS: BP 142/73; PULSE 82; RESP 18; TEMP 36.7; O2SAT 100
[2025-03-01] VITALS (10 sets, daily range): BP systolic 105–130; BP diastolic 52–72; PULSE 86–95; RESP 14–20; TEMP 36.4–37.3; O2SAT 90–99; BMI 38.0
--- OUTSIDE RECORDS SUMMARY | 2025-03-01 00:34 | XMS_ITS ---
Author Organization [facility] Address [address] [place] [address] REJI Burch [address] Care Team Providers Care Per Diem Physical Therapist Assistant Name Role Phone GATITO FORREST MD Primary Care Provider Evan Cuba Unavailable [phone] GLORY BADILLO PT Unavailable Unavailable ALLERGIES No [...] B12 100 MCG as directed Orally Active [place] 3 1000 MG 1 capsule Orally Thr ee times a day for 30 day(s) Active Vitamin D-3 25 MCG (1000 UT) 1 capsule O rally Once a day for 30 day(s) Active Glucosamine Chondro Complex Active PROBLEMS Problem Type ICD Code Onset Dates Problem Status W/U Status Risk SNOMED Code Notes Problem Radiculopathy, lumbar region (M54.16) Active confirmed Lumbar radiculopathy (432662779) Problem Other intervertebral disc degeneration, lumbar region (M51.36) Active confirmed Degeneration of lumbar intervertebral disc (28202284) Problem Postlaminectomy syndrome, not elsewhere classified (M96.1) Active confirmed Post-lami nectomy syndrome (79430065) Problem Osseous stenosis of neural canal of lumbar region (M99.33) Active confirmed Spinal stenosis of lumbar region (42756519) Problem Spondylosis without myelopathy or radiculopathy, lumbar region (M47.816) Active confirmed Lumbosacral spondylosis without myelopathy (57860758) Problem Spondylosis without myelopathy or radiculopathy, lumbosacral region (M47.817) Active confirmed Lumbosacral spondylosis without myelopathy (disorder) (01463775) Problem Sacroiliitis, not elsewhere classified (M46.1) Active confirmed Solitary sacroiliitis (257957936) Problem Spondylolisthesis, lumbar region (M43.16) Active confirmed Acquired spondylolisthesis (346625033) Problem Bilateral primary osteoarthritis of knee (M17.0) Active confirmed Osteoarthritis of knee (913203657) Problem Myalgia, other site (M79.18) Active confirmed Muscle pain (16983021) VITAL SIGNS Blood pressure systolic 151 mm Hg 06/16/20 24 Blood pressure diastolic 86 mm Hg 024 Heart Rate 86 /min 06/16/2024 Respiratory Rate 18 /min 06/16/2024 Height 4 ft 9 in in 06/16/2024 Weight 200 lbs 06/16/2024 BMI 43.27 kg/m2 06/16/2024 Encounters Encounter Location Date Provider Diagnosis [facility] [address] [place] [address] 06/16/2024 Evan Soto Other intervertebral disc degeneration, [...] for physical therapy and will return to [facility] in [place]. 06/16/2024 Radiculopathy, lumbar region (ICD-10 - M54.16) [...] for physical therapy and will return to [facility] in [place]. Myalgia, other site The side effects of [...] sounds throughout Musculoskeletal and Extremities: Ryder 's, Era's and Gaenslen's are positive bilaterally. There is [...]
--- OUTSIDE RECORDS SUMMARY | 2025-03-01 00:34 | XMS_ITS | Patient Health Record ---
Author Organization [facility], Address [address] [address] Care Team Providers Care Assistant Clinical Director Name Role Phone Charlotte Lorenz Primary Care Provider Ethan Zhou Unavailable [phone] ALLERGIES No Known Allergies REASON FOR REFERRAL [...] Encounters Encounter Location Date Provider Diagnosis . [facility] [place] [address] [facility] [address], [place] [address] 08/07/2024 Ethan Laureano Trigger ring finger of [...] End Date [employer] MEDICARE PPO [address] ZOE Kramer [phone] [id number] Sandra Cardoza Self - patient is the insured MEDICAL (GENERAL) HISTORY Medical History History ICD Code arthritis heart murmur HTN obesity Surgical History Surgery Date(Month/Year) appendectomy uterine myomectomy gall bladder lumbar tubbs carpal tunnel ventral hernia repair
--- OUTSIDE RECORDS SUMMARY | 2025-03-01 00:34 | XMS_ITS ---
Author Organization [facility] , Address [address] [place] [address] Care Team Providers Care Rotor Blade Installer Name Role Phone Charlotte Lorenz Primary Care Provider tEhan Zhou Unavailable [phone] ALLERGIES No Known Allergies REASON FOR VISIT [...] Provider Diagnosis . [facility] [place] [address] [place] [address] 08/07/2024 Ethan Laureano Trigger ring finger of [...]
--- OUTSIDE RECORDS SUMMARY | 2025-03-01 00:34 | XMS_ITS | Clinical Summary ---
Author Organization [facility] Address [facility]ly [facility] [place] [address] Care Team Providers Care Signal Intelligence/Electronic Warfare Name Role Phone Charlotte Lorenz MD Primary Care Provider [phone] Medications amLODIPine (NORVASC) 10 MG tablet Take [...] BY MOUTH DAILY Oral for 90 Active [place] 3 1000 MG Cap 1 capsule every 8 (eight) hours. Active traMADol (ULTRAM) 50 MG tablet See Instructions, 30 tablet(s), 0, 0, TAKE 1-2 TABLETS BY MOUTH EVERY 6 HOURS FOR 3 DAYS NEEDED; DO NOT EXCEED 8 TABLETS IN 24 HOURS, Route to Pharmacy Electronically, [id number], [id number], Instructions Replace Required Details, 152, cm, [...] Comments Blood Pressure 122/60 09/30/2024 9:11 AM [employer] Pulse 77 09/30/2024 9:11 AM [employer] Temperature - - Respiratory Rate 16 09/21/2004 9:38 AM [employer]OR R egular Oxygen Saturation 98% 09/30/2024 9:11 AM [employer]OR Inhaled Oxygen Concentration - - Weight 88.9 kg (196 lb) 09/21/2004 9:38 AM H[employer] SCI[employer]OR Height 154.9 cm (5' 1 ) 09/30/2024 9:11 AM [employer] SCI[employer]OR Body Mass Index 37.03 09/21/2004 9:38 AM H[employer] SCI[employer]OR Plan of Treatment Health Maintenance Due Date Last Done Comments Annual Medicare Wellness Visit 2004 PHQ-2 (Physician [place]) 10/21/2024 COVID-19 Vaccine ( season) 2024 07/02/2024, [...] complete this topic Insurance AETNA Care Teams Signal Intelligence/Electronic Warfare Relationship Specialty Start Date End Date Charlotte Lorenz MD [address] [facility] [address] [place] [address] PCP - General INTERNAL MEDICINE 09/30/24
--- OUTSIDE RECORDS SUMMARY | 2025-03-01 00:34 | XMS_ITS ---
Author Organization [facility], [facility] Address [address] [place] [address] [address] [place] [address] Care Team Providers Care Supply Controller Name Role Phone Gerda NIELSON, Charlotte Primary Care Provider Serafin Li [phone] Encounters Encounter Location Date [facility] [address] [place] [address] 10/30/2023 Serafin Shepherd Plan Of Treatment No Information Progress Notes * ROCKWELL Sandra JDOB:1940 (84 yo F)Acc No.[id number]:10/30/2023 Patient: Sandra GAN :1940 A ge:83 Y S ex:Female Address:[address] [place] [address], [address] Subjective: * Chief Complaints: * * Medical History: * Surgical History: * Hospitalization/Major Diagno stic Procedure: * Medications: Objective: * Vitals: * Physical Examination: Assessment: Plan: * Treatment: * Procedure Codes: * Preventive Medicine: Screenings: C olonoscopy Was last colonoscopy performed three or more years ago? Y es * true * Date: Generated for Wileyi della/Jennifer/eTmattismitting on: 0 03/01/2025 12:33 AM CDT
--- OUTSIDE RECORDS SUMMARY | 2025-03-01 00:34 | XMS_ITS ---
Author Organization [facility], [facility] Address [address] [place] [address] [address] [place] [address] Care Team Providers Care Statistical Consultant Name Role Phone Gerda NIELSON, Charlotte Primary Care Provider Serafin Li [facility] [phone] Encounters Encounter Location Date Provider Diagnosis [address] [place] [address] 11/03/2023 Serafin Shepherd Plan Of Treatment No Information Progress Notes * Sandra ROCKWELL JDOB:1940 (83 yo F)Acc No.[id number]:11/03/2023 Patient: Kb taran Sandra Quiles :1940 A ge:83 Y S ex:Female Address:[address] [place] [address], [address] * true * Date: Generated for Wileyi della/Famarlineg/eTransmitting on: 0 03/01/2025 12:33 AM CDT
--- OUTSIDE RECORDS SUMMARY | 2025-03-01 00:34 | XMS_ITS | Patient Health Record ---
Author Organization [facility] Address [address] [place] [address] REJI Burch [address] Care Team Providers Care Nematology Teacher Name Role Phone GATITO FORREST MD Primary Care Provider Ray faith Evan Soto Unavailable [phone] GLORY BADILLO PT Unavailable Unavailable ALLERGIES No Known Allergies REASON FOR REFERRAL No Information MEDICATIONS Medication SIG (Take, Route, Frequency, Duration) Notes Start Date End Date Status Cyclobenzaprine HCl 10 MG 1 tablet at be dtime as needed Orally Once a day for 30 day(s) 06/16/2024 Active Vitamin B12 100 MCG as directed Orally Active [place] 3 1000 MG 1 capsule Orally Thr [...] knee (M17.0) Active confirmed Osteoarthritis of knee (030562015) Problem Spondylolisthesis, lumbar region (M43.16) Active confirmed Acquired spondylolisthesis (366299599) Problem Sacroiliitis, not elsewhere classified (M46.1) Active confirmed Solitary sacroiliitis (784367995) Problem Spondylosis without myelopathy or radiculopathy, lumbar region (M47.816) Active confirmed Lumbosacral spondylosis without myelopathy (14920160) Problem Spondylosis without myelopathy or radiculopathy, lumbosacral region (M47.817) Active confirmed Lumbosacral spondylosis without myelopathy (disorder) (55120519) Problem Other intervertebral disc degeneration, lumbar region (M51.36) Active confirmed Degeneration of lumbar intervertebral disc (12581441) Problem Radiculopathy, lumbar region (M54.16) Active confirmed Lumbar radiculopathy (334854296) Problem Postlaminectomy syndrome, not elsewhere classified (M96.1) Active confirmed Post-lami nectomy syndrome (77032460) Problem Osseous stenosis of neural canal of lumbar region (M99.33) Active confirmed Spinal stenosis of lumbar region (78606124) Problem Myalgia, other site (M79.18) Active confirmed Muscle pain (50855056) VITAL SIGNS Heart Rate 86 /min 06/16/2024 Respiratory Rate 18 /min 06/16/2024 Blood pressure diastolic 86 mm Hg 06/16/2024 Height 4 ft 9 in in 06/16/2024 Blood pressure systolic 151 mm Hg 06/16/2024 Weight 200 lbs 06/16/2024 BMI 43.27 kg/m2 06/16/2024 Encounters Encounter Location Date Provider Diagnosis [facility] [address] [place] [address] 06/16/2024 Evan Soto Other intervertebral disc degeneration, [...] for physical therapy and will return to [facility] in [place]. 06/16/2024 Other intervertebral disc degeneration, lumbar region [...] Coverage End Date AETNA MEDICARE [address] CORRIE NIEVESZOE Rucker [phone] [id number] JONATHAN ROCKWELL Self - patient is the insured MEDICAL (GENERAL) HISTORY Medical History History ICD Code Aneurysm Osteopenia Hypertension GERD Surgical History Surgery Date(Month/Year) Lumbar discectomy age 31 Carpal tunnel release 2018 Cholecystectomy Hernia repair
--- OUTSIDE RECORDS SUMMARY | 2025-03-01 00:34 | XMS_ITS | Patient Health Record ---
Author Organization [facility] Address [address] [facility] 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 Problem 181815601 Adenoma of rectum (D12.8) Active confirmed Problem 107543455 Abdominal bloating (R14.0) Active confirmed Plan Of Treatment Pending Test Test Name Order Date Initiate SIBO 12/31/2017 Insurance Providers Payer Name Payer Address Payer Phone Subscriber Number Group Number Insured Name Patient Relationship to Insured Coverage Start Date Coverage End Date Aetna Medicare Ppo E2 [address] ZOE Kramer [phone] [id number] Sandra Cardoza Self - patient is the insured Medical (General) History Medical History History ICD Code GERD Hypertension Asthma Surgical History Surgery Date(Month/Year) EGD 12/2017 Colonoscopy (Dr. 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
--- OUTSIDE RECORDS SUMMARY | 2025-03-01 00:34 | XMS_ITS ---
Author Organization [facility] Address [address] [facility]. 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 :1940 A ge:83 Y S ex:Female Date:10/30/2023 Address:[address] [place] [address] Pcp:Charlotte Lorenz MD Subjective: * Chief Complaints: [...] o routine f/u colonoscopy * Images: * ER ENGINEER Sign off status: Completed true * Provider: Kb Shepherd M.D. Date: 0 10/30/2023 Generated for Saleem hull/Jennifer/Rodneyitting on: 0 03/01/2025 12:34 AM CDT
[2025-03-01] MEDS: ACETAMINOPHEN 500 MG TABLET 1000 MG PO (11:20)
[2025-03-01] MEDS: LACTATED RINGERS 1,000 ML 30 ML IV CONT ×2 (11:20→14:58)
--- NOTE | 2025-03-01 11:57 | WPDHPUPDATE1 ---
History and Physical Update Update Date/Time: 03/01/25 11:57 History and Physical has been reviewed, including an updated exam of the patient. There are NO changes in the patient's condition. Risks, benefits, and alternatives have been discussed and questions answered. Patient agrees to proceed with procedure.
--- NOTE | 2025-03-01 12:07 | P.PNAN_ITS ---
Anes - Initial Pre Proc Eval Procedure: Operation Date: 03/01/25 12:00 Proposed Procedures p Right Total Knee Arthroplasty, Cortisone Injection Right Ring Finger - Bert Riley MD Date/Time: 03/01/25 12:07 Surgeon: Bert Riley MD Pre Op Diagnosis: Prim O A Right Knee, Right Ring Trigger Finger Patient Data Age: 84 Gender: F Height: 1.52 m Weight: 90.1 kg Last Vital Signs Temp 98.0 F 02/03/25 13:35 Pulse 82 02/03/25 13:35 Resp 18 02/03/25 13:35 BP 142/73 H 02/03/25 13:35 Pulse Ox 100 02/03/25 13:35 O2 Del Method Room Air 02/03/25 13:35 Allergies Allergy/AdvReac Type Severity Reaction Status Date / Time No Known Allergies Allergy Unverified 02/03/25 12:24 Home Medications ?Medication ?Instructions ?Recorded ?Confirmed ?Type acetaminophen 325 mg tablet 650 mg PO Q6H PRN pain 02/22/23 02/03/25 History (Tylenol) amlodipine 10 mg tablet 10 mg PO DAILY 02/22/23 02/03/25 History atorvastatin 10 mg tablet 10 mg PO DAILY 02/22/23 02/03/25 History cholecalciferol (vitamin D3) 25 25 mcg PO DAILY 02/22/23 02/03/25 History mcg (1,000 unit) capsule coenzyme Q10 10 mg capsule 10 mg PO DAILY 02/22/23 02/03/25 History cyanocobalamin (vitamin B-12) 1,000 mcg PO DAILY 02/22/23 02/03/25 History 1,000 mcg capsule multivitamin (Daily Multi-Vitamin 1 tablet PO DAILY 02/22/23 02/03/25 History tablet) omega-3 fatty acids 1,250 mg 1,250 mg PO DAILY 02/22/23 02/03/25 History capsule metoprolol succinate 25 mg 25 mg PO DAILY 12/04/24 02/03/25 History tablet,extended release 24 hr oxycodone-acetaminophen 5 mg-325 1 tablet PO Q6H PRN pain #20 tabs 12/04/24 02/03/25 Rx mg tablet (Percocet) amoxicillin 500 mg tablet 500 mg PO ONCE #4 tabs 01/14/25 02/03/25 Rx tramadol 25 mg tablet 25 mg PO Q6H PRN pain 02/03/25 02/03/25 History valsartan 320 1 tablet PO DAILY 02/03/25 02/03/25 History mg-hydrochlorothiazide 25 mg tablet Laboratory Tests 03/01/25 10:41 Blood Type O Positive Antibody Screen Pending Patient hx anesthesia problems: none Family hx anesthesia problems: none Results Review: All pre-operative results and documents have been reviewed as part of the pre- operative evaluation. [facility] Past Medical History Medical History Thoracic aortic aneurysm (TAA) Knee pain, acute Thyroid nodule Back pain Severe obesity (BMI >= 40) Pulmonary nodule Asthma Vitamin D deficiency Osteopenia of femoral neck IFG (impaired fasting glucose) Combined hyperlipidemia OAB (overactive bladder) Elevated alkaline phosphatase level Hypertension Surgical History Surgical History History of incisional hernia repair H/O myomectomy History of lumbar laminectomy History of laparoscopic cholecystectomy History of appendectomy History of carpal tunnel release Social History Social History Smoking status: Never smoker Additional smoking assessment comments: DENIES ANY FORM OF TOBACCO USE Lack of Transportation: No Lack of Food: Never True Current Housing: I Have Housing Concerned About Future Housing: No Difficulty Paying Gas/Electric Bills: No Difficulty Paying for Meds: No Currently Unemployed: No Education: Master's Degree or Higher Difficulty w/ Childcare or Family Care: No Living arrangements: alone Spiritual care concerns: No Anes - Eval Final PreProcedure Day of Procedure 03/01/25 12:07 Patient weight: obese Heart: regular rate and rhythm Lungs: clear to auscultation Neurological: alert and oriented Last oral intake: >/= 8 hours ASA classification: III Emergent: no Anesthetic plan: proceed Anesthesia type and monitoring: general LMA and standard monitoring Results Review: All pre-operative results and documents have been reviewed as part of the pre- operative evaluation. Informed Consent: The patient's anesthetic plan and its attendant risks and benefits were discussed with the patient/family/POA. Questions were solicited and answers provided to the satisfaction of the patient/family/POA.
[2025-03-01] MEDS: TRANEXAMIC ACID 1,000MG/ISO100 1,000 MG/100 ML BAG 200 MG IVPB (12:30)
[2025-03-01] MEDS: ceFAZolin 2 GM/D5W 50 ML 2 GM/50 ML BAG IVPB (12:33)
[2025-03-01] MEDS: SODIUM CHLORIDE 0.9% IV 37.7 ML, MORPHINE SULFATE INJ (*CRX) 2 MG, ROPivacaine HCL 1% 2... INFILTRATE (13:10)
[2025-03-01] MEDS: methylPREDNISolone ACETATE 40 MG/ML VIAL 20 MG IM (14:47)
--- NOTE | 2025-03-01 15:15 | W.PM.PROC2 ---
Procedure Note - Detailed Date of Procedure 03/01/25 Pre-op Diagnosis 1. Right knee degenerative arthritis 2. Right Ring Trigger Finger Post-op Diagnosis Same Procedure Performed 1. Calipered, kinematically aligned total knee replacement right knee. 2. Right trigger finger injection Surgeon Bert Riley MD Anesthesia General Findings According to the calipered kinematic alignment principles, the knee was balanced by the following verification checks incorporating 6 caliper measurements, using an insert goniometer to select the insert thickness, and adjusting the tibial resection following the kinematic alignment algorithm (see figure 160.10 published in [facility] chapter on kinematic alignment total knee arthroplasty.) The steps verified the femoral and tibial components were kinematically aligned coincident to the patient's pre arthritic joint lines, which closely restored the atka tibial compartment forces and ligament laxities without ligament release. The [employer] Speri[employer] knee, designed specifically for kinematic alignment, fit optimally. Satisfactory bone quality. No releases. The record of verification checks were documented and scanned into the chart. Distal Femoral Resection: Distal Medial 6 mm(cartilage worn), Distal Lateral 8 mm Target thickness of 8mm Unworn, 6mm Worn (No Cartilage). Posterior Femoral Resection: Posterior Medial 5 mm(cartilage worn), Posterior Lateral 7 mm. Target thickness of 7mm Unworn, 5mm Worn (No Cartilage). Description of Procedure General anesthesia was administered. A well-padded tourniquet was placed high on the thigh. The limb was prepped and draped in the usual sterile fashion. The limb was exsanguinated and the tourniquet inflated to 300 mmHg. A longitudinal incision was created over the midline of the knee. Sharp dissection was taken through subcutaneous tissues. Electrocautery was used for hemostasis. A trivector approach to the knee joint was performed. The ACL, anterior horns of the menisci, and fat pad were excised, and a subperiosteal dissection was carried along the posterior medial border of the tibia. Starting midway between the top of the notch in the anterior femoral cortex, I drilled a 9 mm diameter hole parallel to the anterior cortex to minimize flexion of the femoral component and promote patella tracking. I verified the existence of a 5-10 mm bone bridge between the posterior aspect of the hole and the anterior limit of the intercondylar notch. An intraosseous positioning samantha was inserted 10 cm into the femur perpendicular to the distal joint line and parallel to the anterior cortex. I used a distal femoral referencing guide that compensated 2 mm when the cartilage was worn on the distal medial femoral condyle, and 2 mm when the cartilage was worn on the distal lateral femoral condyle. The basis for setting the distal and posterior femoral resection guide is knowing that the varus and valgus grade II to IV Kellegren-Oren osteoarthritic knees have negligible bone wear at 0? and 90? and that the mean full-thickness cartilage wear approximates 2 mm. I measured the thickness of distal femoral resections with a caliper to +/- 0.5 mm. The thickness of each resection was adjusted to match the thickness of the respective condyle of the femoral component within 0.5 mm of target after compensating for cartilage wear and kerf. When the distal resection was 1-2 mm too thin, a recut guide was used to adjust the cut. When the distal resection was too thick, a 1 or 2 mm thick washer was fixed to the back of the 4-in-1 chamfer block to jessi a corrective gap between the femoral component and distal femur. I set posterior femoral referencing guide at 0? orientation to position the pin holes for the 4 in 1 chamfer block. The luisito wing measured the width of the distal femoral resection and selected the size of the 4 in 1 chamfer block and femoral component. The AP sizer confirmed the size. I measured the thickness of the posterior femoral resections with a caliper before making the anterior and chamfer cuts. I adjusted the thicknesses of each resection to match the thickness of the respective condyle of the femoral component within +/-0.5 mm after compensating for cartilage wear and curve. When a posterior resection femoral resection was 1-2 mm too thick or thin a corrective correction was made by shifting or rotating the 4 in 1 chamfer block as needed. The chamfer block was secured in the correct position with compression screws. The anterior and chamfer femoral resections were made. These caliper measurements and corrections verified that the femoral component was set coincident with the patient's pre-arthritic distal and posterior femoral joint lines. I removed all the medial and lateral femoral and tibial osteophytes to restore the pre arthritic length of the medial and lateral collateral ligaments. I víctor AP lines along the major axis of the lateral tibial plateau in between the tibial spines which identified the flexion extension plane of the knee. A conventional extramedullary tibial resection guide was applied to the ankle. An luisito wing was placed medially in the saw slot. The varus valgus angle of the tibial resection guide was adjusted until the guide paralleled the proximal tibial articular surface after compensating for cartilage and bone wear. The slope of flexion extension angle of the tibial resection guide was adjusted until the luisito wing paralleled the slope of the medial tibia after compensating for wear. The AP axis of the tibial resection guide was adjusted parallel to the two lines. The proximal tibia was resected, partially releasing the insertion of the posterior cruciate ligament. The thickness of the medial and lateral lateral tibial condyle was measured at the base of the tibial spines. I visually verified the slope of the medial border of the resection was parallel to the patient's pre arthritic slope after compensating for cartilage and bone wear. I removed the remnants of the posterior horns of the menisci and posterior osteophytes and cauterized the inferior lateral genicular vessels. The Aquamantys bipolar device was also used to for additional hemostasis. When the knee had a preoperative flexion contracture of 20? or more I teased the capsule off the posterior femur with a curved 3 quarter-inch osteotome. I administered the posterior femoral periosteal injection by delivering 10 cc using a 20 gauge spinal needle at the most medial and 10 cc at the most lateral femoral spur surface which reduced the risk of injury to the posterior neurovascular structures. I followed 6 options in a decision tree to fine tune the varus valgus and posterior slope orientation of the tibial component to restore the patient's pre arthritic tibial joint line and limb alignment. First, I adjusted the varus-valgus orientation of the proximal tibia resection working in 1 degree to 2 degree increments until there was negligible medial and lateral lift off of the distal femoral and proximal tibial resection from the spacer block during a varus valgus laxity assessment in extension. I selected the largest anatomic shape trial tibial base plate that fit within the cortical boundary of the proximal tibial resection. The base plate was best fit parallel to the cortical boundary which set the Internal-external orientation of the anterior to posterior and medial to lateral positions. The best fit method set the AP axis of the tibial base plate and insert parallel to the flexion extension plane of the pre arthritic knee. I pinned the trial tibial base plate, prepared the cruciate slot, and fixed the base plate to the tibia with the cruciate stem. I inserted the trial femoral component. The knee was placed in full extension. Varus valgus laxity is of the knee with trial components were assessed. When asymmetric laxity was observed a 1-2 degree varus or valgus recut guide was used to fine tune the tibial resection until the laxity was 1 degree or less in full extension like the atka knee. The following steps determined the optimal insert thickness within +/-1 mm. First I inserted an insert goniometer that matched the thickness of the spacer block. I reduced the patella and then with the knee in maximum extension, I verified the knee hyperextended a few degrees and had negligible varus valgus laxity, like the pre arthritic knee. Next, I measured the external tibial orientation which was the angle the insert goniometer intersected the sagittal line on the medial condyle of the femoral trial component. Then with the knee in 15-30 degrees flexion I verified a 3-4 mm gap in the lateral compartment and no gap in the medial compartment during a 2nd varus valgus laxity test. Next, I placed the knee in 90? of flexion and the foot resting on the operating table and measured the internal tibial orientation. I repeated the steps until I identified the insert thickness that provided the highest external tibia orientation in extension and the highest internal tibial orientation at 90? flexion without anterior lift-off of the insert from the tibial base plate. The insert with this thickness was implanted. I applied a posterior drawer test with the tibia distracted by gravity and verified no posterior subluxation of the tibia relative to the femur. The patella remained centered on the trochlea and tracked well throughout the entire arc of flexion and extension. The lateral patella facet was resected using the oscillating saw. I used pulse lavage to clean the bony surfaces of debris and dried bone. I cemented the tibial, femoral, and patellar components using 1 bag of methylmethacrylate with Gentamycin, then rechecked the stability at full extension, 15-30 degrees, and 90? flexion and verified scientology of the entire arc of motion of the knee. The circulating nurse confirmed the sponge and needle counts were correct. I used pulse lavage to rinse the joint and wound. The extensor mechanism was closed with interrupted #1 Vicryl suture and #1 running Stratafix suture. The subcutaneous layer was closed with interrupted #1 Vicryl suture followed by 2-0 Stratafix and 3-0 Stratafix. Steri-Strips placed on the skin. Silver impregnated occlusive dressing applied to the wound. A light gauze wrap and Kai bandage were placed. The patient was transferred to the recovery room in stable condition. There were no complications. The right ring finger was prepped with chlorhexidine. The flexor tendon sheath was injected with 20mg Depo Medrol and 1ml 1% lidocaine. Sterile bandage applied. Implants [employer] GMK spheriKA Femoral component SpheriKA size 4+, tibial component size t3i4, vitamin-E flex insert, thickness 13mm. Estimated Blood Loss 50 Drains No Pathology None sent Complications No immediate complications Condition Stable Disposition PACU [facility] Billing Surgery - Charge Forward: Surgery Billing
[2025-03-01] MEDS: fentaNYL CITRATE INJ (*CRX) 100 MCG/2 ML VIAL 25 MCG IV PUSH (15:26)
--- NOTE | 2025-03-01 16:38 | SUR.PHASEII ---
1630: PT/OT working with patient.
[2025-03-01] MEDS: TAPENTADOL HCL (*CRX) 50 MG TABLET PO (17:03)
== END 2025-03-01 17:44 | disposition home or self-care (01) ==
PROVIDERS: Visit Provider Orthopaedic Surgery
PROC: (CPT 27447; principal; 2025-03-01 12:00)
DX: M17.11 Unilateral primary osteoarthritis, right knee (principal); M65.341 Trigger finger, right ring finger; E66.9 Obesity, unspecified; Z68.38 Body mass index [BMI] 38.0-38.9, adult
CPT/HCPCS: 27447; 20550; 36415; 86850; 86900; 86901; 97110; 97161; 97165; 97530; 97535; A9270; C1713; C1776; J0171; J0690; J1010; J1100; J1885; J2003; J2270; J2371; J2405; J2704; J2795; J3010; J7120

== ENCOUNTER 2025-04-16 08:58 | Outpatient (CLI) | payer MEDICARE, SELFPAY ==
[2025-04-16 10:00] LABS: Basophils Absolute Auto 0.1 K/mm3 (0.0-0.1); Basophils Percent Auto 1.1 % (0.2-1.2); Eosinophils Absolute Auto 0.1 K/mm3 (0-0.3); Eosinophils Percent Auto 1.7 % (0-4.4); Hemoglobin 11.8 g/dL (12.0-15.0); Immature Granulocyte Absolute 0.03 K/mm3 (0.00-0.031); Immature Granulocyte Percent A 0.4 % (0-0.5); Lymphocytes Absolute Auto 0.93 K/mm3 (0.9-3.2); Mean Corpuscular HGB Conc 31.1 g/dl (32-36); Mean Corpuscular Hemoglobin 30.9 pg (26-34); Mean Corpuscular Volume 99.5 fl (80-100); Mean Platelet Volume 10.9 fl (7.4-10.4); Monocytes Absolute Auto 0.7 K/mm3 (0.1-0.6); Monocytes Percent Auto 10.4 % (2.6-8.5); Neutrophils Absolute Auto 5.2 K/mm3 (1.3-6.7); Neutrophils Percent Auto 73.4 % (45.5-73.1); Platelet Count Result 252 k/mm3 (150-375); Red Blood Count 3.82 M/mm3 (4.2-5.4); Red Cell Distribution Width 12.8 % (11.5-14.5); White Blood Count 7.1 K/mm3 (4.5-10.0)
[2025-04-16 10:13] LABS: Alanine Aminotransferase 12 U/L (6-35); Albumin Level 4.2 g/dL (3.5-5.1); Alkaline Phosphatase 87 U/L (38-126); Anion Gap 9 mmol/L (4-12); Aspartate Amino Transferase 26 U/L (14-36); Bilirubin,Total 0.8 mg/dL (0.2-1.3); Blood Urea Nitrogen 15 mg/dL (7-17); Calcium 9.9 mg/dL (8.4-10.2); Carbon Dioxide 28 mmol/L (22-30); Chloride 101 mmol/L (98-107); Cholesterol 169 mg/dL (0-200); Estimated Glomerular Filt Rate 56; Glucose 117 mg/dL (65-110); HDL Direct 58 mg/dL; Potassium 4.3 mmol/L (3.4-5.0); Sodium 138 mmol/L (137-145); Total Protein 7.4 g/dL (6.3-8.2); Triglycerides 118 mg/dL (<150)
[2025-04-16 10:15] LABS: Add Urine Microscopic? YES; Appearance Urine Cloudy (Clear); Bacteria Urine None Seen /hpf; Bilirubin Urine Negative (Negative); Blood Urine Negative (Negative); Color Urine Dark Yellow (Yellow); Glucose Urine UA Negative (Negative); Ketones Urine Trace mg/dL (Negative); Leukocyte Esterase Ur 3+ LEU/UL (Negative); Nitrate Urine Negative (Negative); Non Pathogenic Casts >20; Protein Urine 1+ mg/dL (Negative); RBC Urine 0-2 /hpf (0-2); Specific Grav Ur 1.021 (1.001-1.035); Squamous Epithelial Cell Urine Moderate /hpf (Few); WBC Urine 21-50 /hpf (0-3); pH Urine 6.5 (5.0-9.0)
[2025-04-16 10:23] LABS: LDL Cholesterol Direct 64 mg/dL
[2025-04-16 10:31] LABS: Vitamin D 25 Hydroxy 36.6 ng/mL
[2025-04-16 10:42] LABS: Creatinine Urine 296.3 mg/dL
[2025-04-16 10:44] LABS: MALB Creatinine Ratio 23.3 mg/g (0-30); Microalbumin Urine Random 68.9 mg/L (0-16.7)
[2025-04-16 11:09] LABS: Hemoglobin A1C. 5.4 % (<5.7)
== END 2025-04-16 08:59 | disposition home or self-care (01) ==
DX: I12.9 Hypertensive chronic kidney disease with stage 1 through stage 4 chronic kidney disease, or unspecified chronic kidney disease (principal); N18.30 Chronic kidney disease, stage 3 unspecified; E78.5 Hyperlipidemia, unspecified; E55.9 Vitamin D deficiency, unspecified; M85.859 Other specified disorders of bone density and structure, unspecified thigh; R73.01 Impaired fasting glucose
CPT/HCPCS: 36415; 80053; 80061; 81001; 82043; 82306; 83036; 84443; 85025